=== PATIENT | female | born 2000 | race Caucasian/White ===

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

== ENCOUNTER 2022-03-17 11:26 | Emergency (ER) | payer BC, SELFPAY ==
--- NOTE | ~2022-03-17 | XR_ITS ---
XR knee LT min 4V 03/17/2022 12:10 INDICATION: Left knee pain PROCEDURE: 4 views left knee COMPARISON: No prior studies for comparison. FINDINGS: Fracture, dislocation or subluxation is not identified. No significant joint effusion. The soft tissues appear within normal limits. No foreign bodies are identified. IMPRESSION: 1: NO ACUTE BONE OR JOINT ABNORMALITY IDENTIFIED. Reviewed, dictated and finalized at location B.
[2022-03-17 11:37] VITALS: BP 118/68; PULSE 90; RESP 17; TEMP 36.6; O2SAT 99
--- NOTE | 2022-03-17 14:20 | ED.GENADULT ---
HPI - General Adult General Chief complaint: Extremity Injury, Lower Stated complaint: left knee injury Time Seen by Provider: 03/17/22 14:12 Source: RN notes reviewed History of Present Illness HPI narrative: Patient presents emergency department from home for left knee. Patient states that prior to arrival she was dancing when she felt a pop in her left knee since then she has had pain in her left knee unable to fully bear weight on the left left knee she denies falling or direct trauma to the knee she states that she has had 2 previous episodes in the past year where she is felt a pop in the knee and had pain but it has improved states that this is his worst episode she is had no formal work-up she denies any numbness or tingling of the extremities she denies any other injuries Related Data Home Medications Medication Instructions Recorded Confirmed norethindrone 1.5 mg-ethinyl 1 tablet PO DAILY 08/25/21 estradiol 30 mcg(21)/iron 75 mg(7) tablet (Junel FE 1.5/30 (28)) Allergies Allergy/AdvReac Type Severity Reaction Status Date / Time No Known Allergies Allergy Unverified 10/26/11 14:28 Review of Systems Review of Systems: Gen.: Denies fevers or chills Musculoskeletal: See HPI Neuro: Denies numbness, tingling, weakness Skin: Denies rash Endo: Denies DM PMFSH Past Medical History Medical History Anxiety Surgical History Surgical History History of adenoidectomy [place] teeth removed Family History Family History Sibling Family history of alcoholism Depression Grandparent Family history of lung cancer Hypertension Other Family history of throat cancer Social History Social History Smoking status: Never smoker Alcohol intake: never Substance use: never 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 Following commands, speech normal, no focal deficits SKIN:: Warm, dry. Normal Color no rash or lesions Course Course Emergency Course: Discussed with patient results of workup and diagnosis. Discussed need for follow-up with primary care, proper use of medication, and reasons to return to the emergency department. Patient understands and agrees to current treatment plan Vital Signs Vital signs: Vital Signs Temperature 97.8 F 03/17/22 11:37 Pulse Rate 90 03/17/22 11:37 Respiratory Rate 17 03/17/22 11:37 Blood Pressure 118/68 03/17/22 11:37 Pulse Oximetry 99 03/17/22 11:37 Temperature 97.8 F 03/17/22 11:37 Pulse Rate 90 03/17/22 11:37 Respiratory Rate 17 03/17/22 11:37 Blood Pressure 118/68 03/17/22 11:37 Pulse Oximetry 99 03/17/22 11:37 Medical Decision Making Vital Signs Vital Signs: Vital Signs Temperature 97.8 F 03/17/22 11:37 Pulse Rate 90 03/17/22 11:37 Respiratory Rate 17 03/17/22 11:37 Blood Pressure 118/68 03/17/22 11:37 Pulse Oximetry 99 03/17/22 11:37 Temperature 97.8 F 03/17/22 11:37 Pulse Rate 90 03/17/22 11:37 Respiratory Rate 17 03/17/22 11:37 Blood Pressure 118/68 03/17/22 11:37 Pulse Oximetry 99 03/17/22 11:37 Imaging Data Radiologist's impression: ITS Impressions Knee X-Ray 03/17/22 12:13 IMPRESSION: 1: NO ACUTE BONE OR JOINT ABNORMALITY IDENTIFIED. Di
== END 2022-03-17 14:51 | disposition home or self-care (01) ==
PROVIDERS: Emergency Provider Emergency Medicine
DX: S83.92XA Sprain of unspecified site of left knee, initial encounter (principal); X50.9XXA Other and unspecified overexertion or strenuous movements or postures, initial encounter; Y93.41 Activity, dancing
CPT/HCPCS: 73564; 99283

== ENCOUNTER 2022-05-18 21:13 | Emergency (ER) | payer BC, SELFPAY ==
[2022-05-18 21:17] VITALS: BP 118/66; PULSE 101; RESP 20; TEMP 35.9; O2SAT 93
[2022-05-18] MEDS: ONDANSETRON HCL ODT 4 MG TABLET PO (21:29)
--- NOTE | 2022-05-18 22:54 | ED.NAVMDI ---
HPI - Nausea/Vomiting/Diarrhea General Chief complaint: Nausea/Vomiting/Diarrhea Stated complaint: vomiting with some blood Time Seen by Provider: 05/18/22 22:04 History of Present Illness HPI Narrative: 22-year-old female presents to the emergency room for evaluation of nausea vomiting and diarrhea that began earlier today. Patient states multiple episodes of nonbilious nonbloody vomiting after eating macaroni and cheese at [employer]. Patient denies any abdominal pain. Related Data Home Medications Medication Instructions Recorded Confirmed norethindrone 1.5 mg-ethinyl 1 tablet PO DAILY 08/25/21 03/24/22 estradiol 30 mcg(21)/iron 75 mg(7) tablet ( FE 1.10/18 (28)) Allergies Allergy/AdvReac Type Severity Reaction Status Date / Time No Known Allergies Allergy Verified 03/24/22 08:17 Review of Systems Review of Systems: CONSTITUTIONAL: Denies fever, chills, or sweats. EYES: Denies visual changes, redness, or discharge. ENT: Denies rhinorrhea, congestion, sore throat, or otalgia. CARDIOVASCULAR: Denies chest pain, palpitations, or edema. RESPIRATORY: Denies cough or dyspnea. GASTROINTESTINAL: Reports nausea vomiting and diarrhea GENITOURINARY: Denies dysuria or hematuria. SKIN: Denies rash or itching. MUSCULOSKELETAL: Denies back pain, joint pain, or myalgia. NEUROLOGIC: Denies headache, numbness, dizziness, or weakness. PSYCHIATRIC: Denies anxiety or depression. 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 HEAD: Normocephalic, atraumatic. EYES: Conjunctivae normal, PERRLA and EOMI. ENT: Mucous membranes dry CHEST: Clear to auscultation. No respiratory distress. No wheezes rales or rhonchi. HEART: Regular rate and rhythm. No murmur heard. Normal peripheral pulses. ABDOMEN: Soft, nontender, nondistended, normal active bowel sounds. BACK: No CVA tenderness EXTREMITIES: Normal range of motion. No edema. No clubbing or cyanosis SKIN: Warm, dry, no rash. No noted wounds NEURO: No focal deficits. Alert and oriented x3. MAEW. CN's II-XI intact bilaterally, normal gait PSYCH: Cooperative. Normal mood and affect. Course Vital Signs Vital signs: Vital Signs Temperature 35.9 C L 05/18/22 21:17 Pulse Rate 101 H 05/18/22 21:17 Respiratory Rate 20 05/18/22 21:17 Blood Pressure 118/66 05/18/22 21:17 Pulse Oximetry 93 05/18/22 21:17 Oxygen Delivery Room Air 05/18/22 21:17 Temperature 35.9 C L 05/18/22 21:17 Pulse Rate 101 H 05/18/22 21:17 Respiratory Rate 20 05/18/22 21:17 Blood Pressure 118/66 05/18/22 21:17 Pulse Oximetry 93 05/18/22 21:17 Oxygen Delivery Room Air 05/18/22 21:17 Discharge Plan Discharge Prescriptions: No Action norethindrone-e.estradiol-iron [ FE .5/30 (28)] 1.5 mg-30 mcg (21)/75 mg (7) tablet 1 tablet PO DAILY ibuprofen 600 mg tablet 600 mg PO TID PRN (Reason: pain) Qty: 14 0RF Follow-up/Referrals: PHYSICIAN,CREDIT ASSISTANT [Primary Care Provider] -
[2022-05-18] MEDS: ONDANSETRON INJ 4 MG/2 ML VIAL IV PUSH (23:18)
[2022-05-18] MEDS: SODIUM CHLORIDE 0.9% IV 1,000 ML 999 ML IV CONT (23:18)
[2022-05-18 23:22] LABS: Basophils Absolute Auto 0.1 K/mm3 (0.0-0.1); Basophils Percent Auto 0.4 % (0.2-1.2); Eosinophils Percent Auto 0.1 % (0-4.4); Hematocrit 43.8 % (37.0-47.0); Hemoglobin 14.9 g/dL (12.0-15.0); Immature Granulocyte Absolute 0.07 K/mm3 (0.00-0.031); Immature Granulocyte Percent A 0.5 % (0-0.5); Lymphocytes Absolute Auto 0.81 K/mm3 (0.9-3.2); Lymphocytes Percent Auto 5.3 % (18.3-44.2); Mean Corpuscular Hemoglobin 28.9 pg (26-34); Mean Corpuscular Volume 84.9 fl (80-100); Mean Platelet Volume 9.6 fl (7.4-10.4); Monocytes Absolute Auto 0.8 K/mm3 (0.1-0.6); Monocytes Percent Auto 5.1 % (2.6-8.5); Neutrophils Absolute Auto 13.6 K/mm3 (1.3-6.7); Neutrophils Percent Auto 88.6 % (45.5-73.1); Platelet Count Result 247 k/mm3 (150-375); Red Blood Count 5.16 M/mm3 (4.2-5.4); Red Cell Distribution Width 12.6 % (11.5-14.5); White Blood Count 15.3 K/mm3 (4.5-10.0)
[2022-05-18 23:33] LABS: Alanine Aminotransferase 19 U/L (6-35); Albumin Level 4.6 g/dL (3.5-5.1); Alkaline Phosphatase 55 U/L (38-126); Anion Gap 11 mmol/L (8-16); Aspartate Amino Transferase 22 U/L (14-36); Bilirubin,Total 0.9 mg/dL (0.2-1.3); Blood Urea Nitrogen 25 mg/dL (7-17); Calcium 8.7 mg/dL (8.4-10.2); Carbon Dioxide 23 mmol/L (22-30); Chloride 103 mmol/L (98-107); Estimated CRCL calculation 77 ml/min; Estimated Glomerular Filt Rate > 60; Glucose 115 mg/dL (65-110); Lipase 209 U/L (23-300); Potassium 4.4 mmol/L (3.4-5.0); Sodium 137 mmol/L (137-145)
[2022-05-18 23:56] LABS: Add Urine Microscopic? YES; Appearance Urine Clear (Clear); Bilirubin Urine 1+ (Negative); Blood Urine Negative (Negative); Color Urine Yellow (Yellow); Glucose Urine UA Negative (Negative); Ketones Urine Trace mg/dL (Negative); Leukocyte Esterase Ur Trace LEU/UL (Negative); Nitrate Urine Negative (Negative); Protein Urine Trace mg/dL (Negative); Specific Grav Ur 1.025 (1.001-1.035); Urobilinogen Urine 0.2 mg/dL (<2.0)
[2022-05-19] LABS: Bacteria Urine Trace /hpf; Mucus Urine Heavy /lpf; RBC Urine 0-2 /hpf (0-2); Squamous Epithelial Cell Urine Moderate /hpf (Few); WBC Urine 0-3 /hpf
[2022-05-19 00:33] VITALS: BP 118/70; PULSE 88; RESP 16; TEMP 36.8; O2SAT 98
--- NOTE | 2022-05-20 00:14 | ED.NAVMDI ---
HPI - Nausea/Vomiting/Diarrhea General Chief complaint: Nausea/Vomiting/Diarrhea Stated complaint: vomiting with some blood Time Seen by Provider: 05/18/22 22:04 Related Data Home Medications Medication Instructions Recorded Confirmed norethindrone 1.5 mg-ethinyl 1 tablet PO DAILY 08/25/21 03/24/22 estradiol 30 mcg(21)/iron 75 mg(7) tablet (Junel FE 1.5/30 (28)) Allergies Allergy/AdvReac Type Severity Reaction Status Date / Time No Known Allergies Allergy Verified 03/24/22 08:17 [facility] Past Medical History Medical History Anxiety Surgical History Surgical History History of adenoidectomy [place] teeth removed Family History Family History Sibling Family history of alcoholism Depression Grandparent Family history of lung cancer Hypertension Other Family history of throat cancer Social History Social History Smoking status: Never smoker Alcohol intake: never Substance use: never Additional occupation/education comments: Manager [employer] Gender identity (if verbalized by the patient): Female Course Vital Signs Vital signs: Vital Signs Temperature 35.9 C L 05/18/22 21:17 Pulse Rate 101 H 05/18/22 21:17 Respiratory Rate 20 05/18/22 21:17 Blood Pressure 118/66 05/18/22 21:17 Pulse Oximetry 93 05/18/22 21:17 Oxygen Delivery Room Air 05/18/22 21:17 Temperature 36.8 C 05/19/22 00:33 Pulse Rate 88 05/19/22 00:33 Respiratory Rate 16 05/19/22 00:33 Blood Pressure 118/70 05/19/22 00:33 Pulse Oximetry 98 05/19/22 00:33 Oxygen Delivery Room Air 05/18/22 21:17 MDM - Nausea/Vomiting/Diarrhea Lab Data 05/18/22 23:12 05/18/22 23:12 Labs: Lab Results 05/18/22 05/18/22 05/18/22 Range/Units 23:12 23:12 23:50 WBC 15.3 H (4.5-10.0) K/mm3 RBC 5.16 (4.2-5.4) M/mm3 Hgb 14.9 (12.0-15.0) g/dL Hct 43.8 (37.0-47.0) % MCV 84.9 (80-100) fl MCH 28.9 (26-34) pg MCHC 34.0 (32-36) g/dl RDW 12.6 (11.5-14.5) % Plt Count 247 (150-375) k/mm3 MPV 9.6 (7.4-10.4) fl Immature Gran % (Auto) 0.5 (0-0.5) % Neut % (Auto) 88.6 H (45.5-73.1) % Lymph % (Auto) 5.3 L (18.3-44.2) % [place] % (Auto) 5.1 (2.6-8.5) % Eos % (Auto) 0.1 (0-4.4) % Baso % (Auto) 0.4 (0.2-1.2) % Lymph # (Auto) 0.81 L (0.9-3.2) K/mm3 [place] # (Auto) 0.8 H (0.1-0.6) K/mm3 Eos # (Auto) 0.0 (0-0.3) K/mm3 Baso # (Auto) 0.1 (0.0-0.1) K/mm3 Abs Immat Gran (auto) 0.07 H (0.00-0.031) K/mm3 Absolute Neuts (auto) 13.6 H (1.3-6.7) K/mm3 Absolute Nucleated RBC 0.0 (0.0-0.012) K/mm3 Nucleated RBC % 0.0 (0.0-0.2) % Sodium 137 (137-145) mmol/L Potassium 4.4 (3.4-5.0) mmol/L Chloride 103 (98-107) mmol/L Carbon Dioxide 23 (22-30) mmol/L Anion Gap 11 (8-16) mmol/L BUN 25 H (7-17) mg/dL Creatinine 0.80 (0.7-1.0) mg/dL Estim Creat Clear Calc 77 ml/min Estimated GFR > 60 (59 - ) Glucose 115 H (65-110) mg/dL Calcium 8.7 (8.4-10.2) mg/dL Total Bilirubin 0.9 (0.2-1.3) mg/dL AST 22 (14-36) U/L ALT 19 (6-35) U/L Alkaline Phosphatase 55 (38-126) U/L Total Protein 8.0 (6.3-8.2) g/dL Albumin 4.6 (3.5-5.1) g/dL Lipase 209 (23-300) U/L Urine Color Yellow (Yellow) Urine Appearance Clear (Clear) Urine pH 6.0 (5.0-9.0) Ur Specific [place] 1.025 (1.001-1.035) Urine Protein Trace (Negative) mg/dL Urine Glucose (UA) Negative (Negative) mg/dL Urine Ketones Trace (Negative) mg/dL Ur Blood (Man) Negative (Negative) Urine Nitrate Negative (Negative) Urine Bilirubin 1+ H (Negative) Urine Urobilinogen 0.2 (<2.0) mg/dL Adrien
== END 2022-05-19 00:35 | disposition home or self-care (01) ==
PROVIDERS: Emergency Provider Nurse Practitioner Family
DX: A05.9 Bacterial foodborne intoxication, unspecified (principal)
CPT/HCPCS: 36415; 80053; 81001; 81025; 83690; 85025; 96361; 96374; 99284; A9270; J2405; J7030

== ENCOUNTER 2022-06-16 08:00 | Outpatient (RCR) | payer BC, SELFPAY ==
--- NOTE | 2022-04-01 13:51 | PTOPEVAL1 ---
Assessment and note entered by Bety Malik DPT Evaluation Information Assessment Status Evaluation Reported Pain Level Pain Score 3: Self Report Additional Pain Score Comments Pt reports a left meniscus tear and left knee arthroscopic meniscal repair. [place] like she injured her knee at the end of February and heard a pop. Has previously been to PT for her same knee. Surgery 03/25/22. Highest pain 10/10 and lowest 0/ 10. Pt is currently using crutches and keeping her brace locked in extension for walking. Has not returned to school (dance major) and has not been allowed to drive. Pt is not dancing or doing other ADL's. Has to scoot down stairs at home. Returns to MD 04/07/22. Assessment PT Clinical Summary The patient is s/p left mensicus repair on 03/25/22 . She is currently TTWB with a locked extension brace and ambulating with crutches. She demonstrates decreased range of motion and likely strength impairments. She will benefit from skilled therapy to address her impairments per protocol in order to safely reduce pain and return to her prior level of function. Plan of Care Interventions Electrical Stimulation,Gait Training,Hot Pack/Cold Pack,Manual Therapy,Neuro Re-education,Patient/ Caregiver Education,Therapeutic Activities, Therapeutic Exercise,Self-Care/Home Management PT Services Indicated Yes Treatment Frequency and 2-3 times a week for 6 weeks Duration These treatments will address the objective and functional deficits as defined above. The patient will be advanced safely and appropriately in order for the patient to progress towards his/her prior level of function. Additional exercises will be introduced and as well as a comprehensive home exercise program upon discharge, if needed, ?to ensure carryover of functional gains achieved in the clinic. This treatment plan has been reviewed and agreement upon by the patient.
--- NOTE | 2022-04-05 14:21 | PTOPPROG ---
Assessment and note entered by Bret Alves, PT Evaluation Information Assessment Status Progress Diagnosis L knee meniscal repair Onset 03/25/22 Subjective Information Patient reports she has been icing her knee and keeping it elevated regularly. She has been doing her exercises with hip abduction and extension being her least favorite. Has been going to class , but just sitting on the side. Using the crutches and only putting toe down for balance. Assessment PT Clinical Summary Patient is currently in phase 1 of her protocol. She has 0-60 degrees active assisted knee range of motion and good quad contraction. Needs to improve her hip strengthening and after seeing MD later this week will hopefully be able to start phase 2. Plan of Care Interventions Electrical Stimulation,Gait Training,Manual Therapy,Neuro Re-education,Patient/Caregiver Education,Therapeutic Activities,Therapeutic Exercise,Self-Care/Home Management PT Services Indicated Yes Treatment Frequency and 2-3x/wk for 6 weeks Duration These treatments will address the objective and functional deficits as defined above. The patient will be advanced safely and appropriately in order for the patient to progress towards his/her prior level of function. Additional exercises will be introduced and as well as a comprehensive home exercise program upon discharge, if needed, ?to ensure carryover of functional gains achieved in the clinic. This treatment plan has been reviewed and agreement upon by the patient.
--- NOTE | 2022-05-12 08:50 | PTOPPROG ---
Assessment and note entered by Thais Haywood, PT Evaluation Information Assessment Status Progress Diagnosis L knee meniscal repair Onset 03/25/22 Subjective Information Shabnam reports: pain range 0-2/10, sore when walking about 1 hour; is no longer using the crutches; is using the brace, locked straight with walking; doing all the exercises at home; is not taking any pain meds; use ice PRN--at least once/day; still feel like a little swelling under knee cap; Assessment PT Clinical Summary Shabnam has received 12 PT sessions. Compared to the initial evaluation: pain rating has decreased from 10 to 2/10 at worst, knee active ROM is 0-120'; increased strength; progression of HEP, gait without assistive device ; have good quad control with walking on level surface and stairs without brace. There is slight edema over mid patella, with 2 cm larger circumferential measurement compared to R; Shabnam has met the PT goals. Continue PT treatment, with progression per protocol to week 6-12 activities. Plan of Care Interventions Gait Training,Hot Pack/Cold Pack,Manual Therapy, Neuro Re-education,Patient/Caregiver Educati, Therapeutic Activities,Therapeutic Exercise PT Services Indicated Yes Treatment Frequency and 1-2x/wk for 5 weeks, depend upon her school schedule Duration These treatments will address the objective and functional deficits as defined above. The patient will be advanced safely and appropriately in order for the patient to progress towards his/her prior level of function. Additional exercises will be introduced and as well as a comprehensive home exercise program upon discharge, if needed, ?to ensure carryover of functional gains achieved in the clinic. This treatment plan has been reviewed and agreement upon by the patient.
--- NOTE | 2022-06-16 08:48 | PTOPDC ---
Assessment and note entered by Thais Haywood, PT Evaluation Information Assessment Status Discharge Diagnosis L knee meniscal repair Onset 03/25/22 Subjective Information Shabnam reports: has been doing her exercises at home and getting back to dancing; at school has a gym for weight exercises; feels like sometimes have swelling on inside of knee; Discussed with her--use of bicycle or treadmill for increased endurance and activity level; progress activity as tolerated, monitoring pain and swelling; Reported Pain Level Pain Score Self Report Additional Pain Score Comments pain range of 0-4/10, knee sore when first wake up in the morning on the inside part, after get up and move is better; use ice as needed, no pain med; can be up all day and moving, do not have to rest because of knee pain; have been doing some dance-- ballet and tap, doing about 75% of what normal is; see the dr tomorrow; sometime have knee pain if leg twists; is wearing [place] tennis shoes-- which do not have much support; discussed more supportive shoe wear; Assessment PT Clinical Summary Shabnam has received 18 PT sessions. Compared to the last reevaluation: increased activity during day--no longer has to rest/sit due to knee pain; has returned to dance activity ~ 75% of her normal dance routines; pain range was 0-2/10, now 0-4/10; is not using the knee brace anymore; max single leg press weight increased from 40# to 60# x 10 reps; single leg standing L PF and small squat increased reps and stability of knee is good; knee flexion 130'; circumferential measurement of mid patella .5 cm difference R/L; she tolerated jumping B on/off 6 step and jog for 5 min on treadmill; Shabnam is indep with her HEP and has access at school fitness center to continue weight training and progression of exercises. She is motivated and understands progression of activity and has good control of knee with activities. The goals were achieved, except pain rating at worst rating. Discharge PT services, to continue to progress activity as tolerated. Plan of Care PT Services Indicated
== END 2022-06-16 11:18 | disposition home or self-care (01) ==
LOC: ANHPT 08:00
PROVIDERS: Visit Provider Orthopaedic Surgery
DX: Z48.89 Encounter for other specified surgical aftercare (principal); Z98.890 Other specified postprocedural states
CPT/HCPCS: 97110; 97112; 97116; 97140; 97161; 97530

== ENCOUNTER 2022-12-06 12:54 | Outpatient (CLI) | payer BC, SELFPAY ==
[2022-12-06 14:02] LABS: Basophils Percent Auto 0.5 % (0.2-1.2); Eosinophils Absolute Auto 0.1 K/mm3 (0-0.3); Eosinophils Percent Auto 2.1 % (0-4.4); Hematocrit 41.6 % (37.0-47.0); Immature Granulocyte Absolute 0.03 K/mm3 (0.00-0.031); Immature Granulocyte Percent A 0.5 % (0-0.5); Lymphocytes Absolute Auto 2.22 K/mm3 (0.9-3.2); Mean Corpuscular HGB Conc 33.7 g/dl (32-36); Mean Corpuscular Hemoglobin 28.9 pg (26-34); Mean Corpuscular Volume 85.8 fl (80-100); Mean Platelet Volume 9.7 fl (7.4-10.4); Monocytes Absolute Auto 0.3 K/mm3 (0.1-0.6); Monocytes Percent Auto 4.5 % (2.6-8.5); Neutrophils Absolute Auto 3.5 K/mm3 (1.3-6.7); Neutrophils Percent Auto 56.4 % (45.5-73.1); Platelet Count Result 297 k/mm3 (150-375); Red Blood Count 4.85 M/mm3 (4.2-5.4); Red Cell Distribution Width 12.4 % (11.5-14.5); White Blood Count 6.2 K/mm3 (4.5-10.0)
[2022-12-06 14:20] LABS: Anion Gap 8 mmol/L (8-16); Blood Urea Nitrogen 16 mg/dL (7-17); Calcium 9.2 mg/dL (8.4-10.2); Carbon Dioxide 30 mmol/L (22-30); Chloride 100 mmol/L (98-107); Estimated Glomerular Filt Rate > 60; Glucose 118 mg/dL (65-110); Potassium 3.7 mmol/L (3.4-5.0); Sodium 138 mmol/L (137-145)
[2022-12-06 14:41] LABS: Vitamin D 25 Hydroxy 49.7 ng/mL
[2022-12-07 11:17] LABS: Free T4 Free Thyroxine 1.15 ng/mL (0.78-2.19)
[2022-12-11 04:55] LABS: Thyroid Peroxidase Antibodies <1 IU/mL (<9)
== END 2022-12-06 12:55 | disposition home or self-care (01) ==
PROVIDERS: PCP Family Medicine; Visit Provider Physician Assistant Medical
DX: G43.909 Migraine, unspecified, not intractable, without status migrainosus (principal); E55.9 Vitamin D deficiency, unspecified; Z86.39 Personal history of other endocrine, nutritional and metabolic disease; E05.90 Thyrotoxicosis, unspecified without thyrotoxic crisis or storm
CPT/HCPCS: 36415; 80048; 82306; 84439; 84443; 85025; 86376

== ENCOUNTER 2023-01-20 16:19 | Outpatient (CLI) | payer BC, SELFPAY ==
[2023-01-20 18:50] LABS: Thyroid Stimulating Hormone 0.691 uIU/mL (0.465-4.680)
[2023-01-20 19:06] LABS: Free T4 Free Thyroxine 1.08 ng/mL (0.78-2.19)
== END 2023-01-20 16:20 | disposition home or self-care (01) ==
LOC: ANHLAB 16:21
PROVIDERS: PCP Family Medicine; Visit Provider Physician Assistant Medical
DX: R79.89 Other specified abnormal findings of blood chemistry (principal)
CPT/HCPCS: 36415; 84439; 84443

== ENCOUNTER 2023-07-26 07:05 | Outpatient (CLI) | payer BC, SELFPAY ==
--- NOTE | ~2023-07-26 | MR_ITS ---
EXAMINATION: MR lower leg RT wo con DATE: 07/26/2023 07:45 INDICATION: Right simon pain TECHNIQUE: Magnetic resonance imaging (MRI) of the right lower leg was performed without intravenous contrast. A marker was placed over the region of concern. Sequences included axial, sagittal and cor onal T1-weighted FSE and fluid sensitive FSE STIR. The contralateral left lower leg is included on th e coronal images. COMPARISON: None. FINDINGS: Alignment is normal at both lower legs. Normal bone marrow signal throughout with no reactive edema, fracture or pathologic marrow replacing process. No periostitis. Normal symmetric muscle bulk and sig nal throughout the bilateral lower legs. The visualized portions of the tendons of the right lower le g are normal. No evident joint effusions or other abnormal fluid collections. IMPRESSION: 1. Normal MRI of the right lower leg. No etiology identified for reported pain at the anteromedial as pect of the distal right lower leg. Reviewed, dictated and finalized at location A. [employer] IMPRESSION: 1. Normal MRI of the right lower leg. No etiology identified for reported pain at the anteromedial aspect of the distal right lower leg.
== END 2023-07-26 07:06 ==
LOC: MICIMG 07:06
PROVIDERS: PCP Family Medicine Sports Medicine; Visit Provider Family Medicine Sports Medicine
DX: M84.361A Stress fracture, right tibia, initial encounter for fracture (principal)
CPT/HCPCS: 73718

== ENCOUNTER 2023-08-18 15:02 | Outpatient (RCR) | payer BC, SELFPAY ==
--- NOTE | 2023-08-18 16:16 | OPREHPOC ---
Outpatient Therapy Plan of Care This is a Multidisciplinary Plan of Care that may contain components documented by all disciplines (PT, OT, and ST.) PT Problem 1 PT Problem #1 Knowledge Deficit PT Goal 1 Goal *indep with HEP PT Problem 2 PT Problem #2 Pain PT Goal 1 Goal 1* pt report pain at worst of 3/10 2* LE functional scale rating of 8% limitation in activity PT Problem 3 PT Problem #3 Impaired Functional Mobil PT Goal 1 Goal for improved ability to perform dancing activities : 20 reps with good stability and without pain: 1* standing R LE small squat 2* R standing PF with good stability 3* pt report she has returned to full dancing activity at school
--- NOTE | 2023-08-18 16:16 | PTOPEVAL1 ---
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 Reported Pain Level Pain Score Self Report Additional Pain Score Comments pain range in the past week 0-6/10; point to lower medial tibial--when press on it--deep bruise and tenderness; when hurts more and legs tired have achilles tendon/gastroc pain has improved since Jun. increase pain: dancing jumps ~ 20 min; squats; ankle DF decreased pain: rest, ice/heat; advil PRN have compression sock- helped when use them for walking; discussed PRN use of compression sock for pain; and use of ice more than heat for pain; Assessment PT Clinical Summary Shabnam has the diagnosis of R simon pain/ stress fracture. 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 LE functional scale of 20% limitation of activity. She defines her pain increase with standing and ankle DF at end range of motion and jumping more. With the evaluation: active ROM of R hip, knee and ankle is WNL; pain is increased with R single leg small squat, from 0-3/10 and when the motion is stopped, pain is eased; with the muscle testing, there is slight decrease in R ankle inversion and eversion and standing single leg R PF and small squat; she has a good understanding of posture of LE's with dancing from her previous therapy s/p L knee arthroscopy. She was issued a HEP. At this time, she has a g
--- NOTE | 2023-09-26 14:07 | PTOPDC ---
Assessment and note entered by Thais Haywood, PT Discharge Information Assessment Status Discharge - Pt Not Present Diagnosis pain R simon Onset Jun 2023 Assessment PT Clinical Summary Shabnam received the PT evaluation on August 17 and did not return for any further treatment. Therefore, she will be discharged from PT. The goals were not addressed. Plan of Care PT Services Indicated No
== END 2023-09-26 14:20 | disposition home or self-care (01) ==
LOC: ANHPT 15:02
PROVIDERS: PCP Family Medicine Sports Medicine; Visit Provider Family Medicine Sports Medicine
DX: M79.661 Pain in right lower leg (principal)
CPT/HCPCS: 97110; 97161; 97530